=== PATIENT | male | born 1970 | race Caucasian/White ===

== ENCOUNTER 2018-01-01 13:25 | Emergency (ER) | payer OTHER, SELFPAY ==
--- NOTE | 2018-01-01 13:25 | DT_ITS ---
This patient was seen during an EMR downtime December 29, 2017 - January 05, 2018. This patient may have a combination of paper and electronic documentation or all paper documentation. All documentation is viewable within the e-chart portion of [facility] for each patient visit.
== END 2018-01-01 15:02 | disposition home or self-care (01) ==
LOC: ED 01-07 08:36
PROVIDERS: Emergency Provider Emergency Medicine
DX: R10.9 Unspecified abdominal pain (principal); B19.20 Unspecified viral hepatitis C without hepatic coma; M19.90 Unspecified osteoarthritis, unspecified site; F17.200 Nicotine dependence, unspecified, uncomplicated; Z79.899 Other long term (current) drug therapy
CPT/HCPCS: 96372; 99282

== ENCOUNTER 2018-01-21 16:22 | Emergency (ER) | payer OTHER, SELFPAY ==
[2018-01-21 16:23] VITALS: BP 145/88; PULSE 67; RESP 18; TEMP 36.8; O2SAT 99; BMI 28.7
--- NOTE | 2018-01-21 17:02 | ED.VISSUMM ---
- ER Visit Summary Date of Service: 01/21/18 Chief Complaint: Facial injury History of Present Illness: The patient is a 47 M who was hit in the face with a piece of plywood while he was ripping up a floor. He was hit in the anterior jaw. He was not knocked to the ground and did not lose consciousness. He is also complaining of tennis elbow on his right arm. Physical Examination: Vital signs are unremarkable. Head neck examination was a 2 cm linear laceration. This is a through and through injury to the lower gumline. He does have false teeth that are uninjured. He has an abrasion noted on the right side of his lower lip. There is no C-spine tenderness. Heart is regular rate and rhythm. Lung sounds are clear. Abdomen is soft nontender. Extremity examination is significant for tenderness along the medial epicondyle of the right elbow. Full range of motion is noted with strong distal pulses and normal Test Results: [] Emergency Department Course and Treatment: Tetanus update is provided. Patient is given Naprosyn and Pen-Vee K. Let is applied to the chin wound. Wound is thoroughly cleansed. Despite aggressive scrubbing the wound does not reopen. It was probed with a cotton tip swab and does not reopen. This will be left to heal. Intraoral laceration is cleansed with sterile saline. He will be given Pen-Vee K for home and instructed to wash his mouth out after eating. He will be given Naprosyn for his tennis elbow. Treatment Plan: [] Disposition: Discharge Impression: 1. Facial laceration, sealed, not sutured 2. Intraoral laceration This note was generated with [employer] dictation software. It may contain incorrect words, spelling, and punctuation that were not noted in review of the chart prior to signing ED Disposition - Plan for ED Patient: Chief Complaint: Laceration Referrals: Nieves Anguiano DO [Primary Care Provider] -
[2018-01-21] MEDS: Naproxen 500 MG Tablet PO (17:03)
[2018-01-21] MEDS: Lidocaine/Epi/Tetracaine 50 ML 1 APPLIC TOPICAL (17:04)
[2018-01-21] MEDS: Diphth,Pertuss(Acell),Tet Vac 0.5 ML Vial IM (17:04)
--- NOTE | 2018-01-21 17:29 | ED.DEP ---
ED Disposition - Plan for ED Patient: Disposition: Home or Assisted Living Chief Complaint: Laceration Instructions: ED Laceration Mouth Prescriptions: Naproxen [Naprosyn] 500 mg PO BID PRN #20 tablet Penicillin V Potassium 500 mg PO 4X/DAY #40 tablet Referrals: Nieves Anguiano DO [Primary Care Provider] - 1-2 Weeks
[2018-01-21] MEDS: Penicillin Vk 250 MG Tablet 500 MG PO (17:37)
== END 2018-01-21 17:43 | disposition home or self-care (01) ==
PROVIDERS: Emergency Provider Emergency Medicine
DX: S01.512A Laceration without foreign body of oral cavity, initial encounter (principal); W22.8XXA Striking against or struck by other objects, initial encounter; Y93.89 Activity, other specified; Y92.89 Other specified places as the place of occurrence of the external cause; Y99.9 Unspecified external cause status; Z72.0 Tobacco use
CPT/HCPCS: 90471; 90715; 99283

== ENCOUNTER → 2018-06-01 16:05 | Outpatient (CLI) | payer OTHER, SELFPAY | DX: B18.1 Chronic viral hepatitis B without delta-agent (principal); K74.60 Unspecified cirrhosis of liver | CPT/HCPCS: 36415 ==

== ENCOUNTER → 2018-07-04 09:06 | Outpatient (CLI) | payer OTHER, SELFPAY ==
--- NOTE | 2018-07-04 09:10 | US_ITS ---
STUDY: ABDOMINAL ULTRASOUND REASON FOR EXAM: Male, 47 years old. Hepatitis B TECHNIQUE: Transabdominal ultrasound was performed with real-time and static sanderson scale imaging. TECHNICAL QUALITY: Adequate. COMPARISON: None. FINDINGS: Liver: The liver measures 17.4 cm. There is increased, coarsened echogenicity of the liver. The bile ducts are within normal limits. There is hepatic color flow. The direction of portal flow is hepatopetal. There is no demonstrated mass lesion. Minimal amount of ascites in the upper abdomen. Gallbladder: Normal distended gallbladder. The gallbladder wall measures 2.1 mm. There is a negative sonographic Orosco's sign. There is no pericholecystic fluid. Echogenic foci within the gallbladder abutting the wall without definitive shadowing. Mild amount of sludge. Common Bile Duct (C.B.D.): The common bile duct measures 7.7 mm. Pancreas: There is nonvisualization of the pancreas. Spleen: Normal size of the spleen. The spleen measures 11.7 cm. Right Kidney: Normal size of the right kidney. The right kidney measures 10.5 cm. Normal renal cortex. The right cortex measures 1.6 cm. There is no demonstrated renal mass or cyst. There is no right hydronephrosis. Left Kidney: Normal size of the left kidney. The left kidney measures 11.3 cm. Normal renal cortex. The left cortex measures 1.4 cm. Along the superior left kidney, there is a hypoechoic mass measuring 2.0 x 2.8 x 2.9 cm with vascular flow. There is no left hydronephrosis. Aorta: Nonaneurysmal I.V.C.: The IVC is patent. US/Abdomen Complete IMPRESSION: 1. 2.0 x 2.8 x 2.9 cm mass in the superior left kidney that appears larger as compared to prior CT of 2015. Additional evaluation with renal protocol CT or MRI recommended. Neoplasm is primary differential diagnosis. 2. Increased, coarsened echo pattern of the liver is nonspecific and can be associated with infiltrating diseases such as fatty infiltration, hepatitis or early cirrhosis. Trace perihepatic ascites. Electronically Signed: Fracisco Emerson MD at 20:28 EST , Service support ,
== END ==
LOC: US 09:06
DX: B19.10 Unspecified viral hepatitis B without hepatic coma (principal)
CPT/HCPCS: 76700